=== PATIENT | male | born 1945 | race Caucasian/White ===

== ENCOUNTER 2023-03-09 06:02 | Outpatient (RCR) | payer MEDICARE, OTHER, SELFPAY | END 2023-03-09 23:59 | disposition home or self-care (01) | LOC: RPT 06:02 | PROVIDERS: ATTENDING PHYSICIAN Internal Medicine | DX: G20.C Parkinsonism, unspecified (principal) | CPT/HCPCS: 97112; 97163 ==

== ENCOUNTER 2023-04-16 09:05 | Outpatient (RCR) | payer MEDICARE, OTHER, SELFPAY | END 2023-04-16 10:08 | disposition home or self-care (01) | LOC: ROT 09:05 | PROVIDERS: ATTENDING PHYSICIAN Internal Medicine | DX: G20.C Parkinsonism, unspecified (principal) | CPT/HCPCS: 97110; 97112; 97116; 97166; 97530; 97535 ==

== ENCOUNTER 2023-04-27 17:30 | Outpatient (RCR) | payer SELFPAY | END 2023-04-27 23:59 | disposition home or self-care (01) | LOC: ROT 17:30 | PROVIDERS: ATTENDING PHYSICIAN Internal Medicine | DX: G20.A1 Parkinson's disease without dyskinesia, without mention of fluctuations (principal) ==

== ENCOUNTER → 2023-05-25 10:51 | Outpatient (REF) | payer MEDICARE, OTHER, SELFPAY | LOC: RAD 10:51 | PROVIDERS: ATTENDING PHYSICIAN Nurse Practitioner Family | DX: R05.1 Acute cough (principal); R09.89 Other specified symptoms and signs involving the circulatory and respiratory systems | CPT/HCPCS: 71046 ==

== ENCOUNTER 2023-06-22 20:50 | Observation (INO) | payer MEDICARE, OTHER, SELFPAY ==
[2023-06-22 18:06] VITALS: BP 180/84
[2023-06-22 18:10] LABS: Glucose - Point of Care 127 mg/dl (70-99)
[2023-06-22 18:38] LABS: % Basophils 0.3 % (0-2); % Eosinophils 1.4 % (0-6); % Immature Granulocytes 0.3 % (0-0.5); % Lymphocytes 21.6 % (20.5-51.1); % Monocytes 9.9 % (1.7-9.3); % Neutrophils 66.5 % (42.2-75.2); Absolute Eosinophils 0.1 10^3/uL (0-0.7); Absolute Lymphocytes 1.5 10^3/uL (1.2-3.4); Absolute Monocytes 0.7 10^3/uL (0.1-0.6); Absolute Neutrophils 4.7 10^3/uL (1.4-6.5); Hematocrit 44.9 % (39.0-52.0); Hemoglobin 14.8 g/dL (13.0-18.0); Mean Corpuscular Hgb 30.1 pg (27.0-31.0); Mean Corpuscular Volume 91.4 fL (80.0-94.0); Mean Platelet Volume 10.1 fL (7.4-10.4); Nucleated Red Blood Cells % 0 % (-); Platelet Count 217 10^3/uL (130-400); Red Blood Cell Count 4.91 10^6/uL (4.70-6.10); Red Cell Dist. Width 12.4 % (11.5-14.5); White Blood Cell Count 7.1 10^3/uL (4.8-10.8)
[2023-06-22 18:52] LABS: ALT (SGPT) 14 U/L (0-50); AST (SGOT) 21 U/L (17-59); Albumin 4.3 g/dl (3.5-5.0); Alkaline Phosphatase 75 U/L (38-126); Blood Urea Nitrogen 18 mg/dl (9-20); Carbon Dioxide 31 mmol/L (22-30); Chloride 95 mmol/L (98-107); Glucose 120 mg/dl (70-99); Potassium 4.4 mmol/L (3.5-5.1); Sodium 134 mmol/L (135-145); Total Bilirubin 0.5 mg/dl (0.2-1.3); Total Protein 6.7 g/dl (6.3-8.2); eGFR > 60.00
[2023-06-22 19:32] VITALS: BP 176/73
--- NOTE | 2023-06-22 19:55 | ED.CVA ---
History of Present Illness
General
Chief Complaint: CVA/TIA Symptoms
Source: patient
Exam Limitations: none
Time Seen by Provider: 06/22/23 19:28
Nursing documentation reviewed up to this point in time: agreed with
Onset of Stroke Symptoms
Onset of symptoms known: Yes
Date of onset of symptoms: 06/08/23
Travel History
Have you had any contact with someone who has COVID-19?: No
Do you have any symptoms of coronavirus? Fever > 100 degrees, chills, cough, shortness of breath, sore throat, loss of taste or smell, muscle aches, or headache?: No
History of Present Illness
History of Present Illness:
77-year-old male presents emergency department due to memory loss and difficulty remembering passwords and identifying items in their house for the past 2 weeks. No weakness. Diagnosed with Parkinson's in October at [facility].
Past History
Past History
ED Past Medical History: Other (Back pain, loud snoring, diverticulitis, cataracts) and Other (Parkinson's)
ED Past Surgical History: Orthopedic (Right total knee replacement, right shoulder replacement) and Other (3 hernia repairs)
Social History
Tobacco: Non-smoker
Alcohol: None
Drug: None
Personal:
Living: with family
Review of Systems
Review of Systems
Allergies reviewed?: Yes
All Other Systems: Not applicable
Constitutional: Reports no symptoms
EENT: Reports no symptoms
Respiratory: Reports no symptoms
Cardiac: Reports no symptoms
ABD/GI: Reports no symptoms
: Reports no symptoms
Musculoskeletal: Reports no symptoms
Skin: Reports no symptoms
Neurological: Reports other (Forgetfulness, difficulty naming objects)
Endocrine: Reports no symptoms
Hematologic/Lymphatic: Reports no symptoms
Psychiatric: Reports no symptoms
Phy Exam
Physical Exam
Physical Exam:
Physical Exam
General: no apparent distress, not acutely ill
Neck: supple. no meningeal signs. normal posterior pharynx
Heart: s1/s2 regular rate and rhythm, no murmur. equal radial
pulses.
HEENT: Pupils equal round reactive to light, EOMI
Lungs: no acute respiratory distress. clear bilaterally
Abdomen: normal bowel sounds. not tender. no CVAT
Neuro: alert and oriented. no focal neurological deficits cranial nerves II through XII intact
Skin: no rash
Psychiatric: well kept. interactive and cooperative
Extremities: no edema. no calf tenderness. negative homans. good distal pulses
Course
Orders/Labs/Results
Orders:
Orders
06/22/23 18:19
CT Head W/o Iv Contrast Urgent
Comment:
Reason For Exam: inappropriate actions when asked to do a task
06/22/23 18:22
EKG [Electrocardiogram (*1)] Urgent
Reason for Study: TIA/Stroke
EKG- Treatment ONCE
06/22/23 18:24
CBC/With Diff [Complete Blood Count/With Diff] Urgent
CMP [Comprehensive Metabolic Panel] Urgent
06/22/23 19:54
Dexamethasone [Decadron] 4 mg PO NOW STA
06/22/23 20:00
Dexamethasone [Decadron] 4 mg PO Q6H
Abnormal Lab Results
06/22/2324
18:08 18:24
Absolute Monos (auto) 0.7 H 10^3/uL
(0.1-0.6)
Monocytes % 9.9 H %
(1.7-9.3)
Sodium 134 L mmol/L
(135-145)
Chloride 95 L mmol/L
(98-107)
Carbon Dioxide 31 H mmol/L
(22-30)
Glucose 120 H mg/dl
(70-99)
POC Glucose 127 H mg/dl
(70-99)
06/22/23 18:24
06/22/23 18:24
Vital Signs
Initial and Last Documented VS:
Initial Vital Signs
Temp Pulse Resp BP Pulse Ox
98.1 F 72 18 180/84 97
06/22/23 18:06 06/22/23 18:06 06/22/23 18:06 06/22/23 18:06 06/22/23 18:06
Last Documented Vital Signs
Temp Pulse Resp BP Pulse Ox
98.1 F 72 18 180/84 97
06/22/23 18:06 06/22/23 18:06 06/22/23 18:06 06/22/23 18:06 06/22/23 18:06
MDM/Problems Addressed
Differential Diagnosis Includes:
CVA, intracranial hemorrhage, intracranial tumor
MDM/Problems Addressed:
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 Unclear if this is a primary tumor or metastasis. Discussed with Dr. Cárdenas, who recommends admission to hospitalist, Decadron 4 mg every 6 hours, and MRI brain, ct chest abdomen
pelvis. Hospitalist will order these.
Chronic conditions affecting care: Arrhythmia
Acute Exacerbation and/or Progression of Chronic Illness: Arrhythmia
*Radiology
Radiology exam reviewed: radiology read reviewed (ct head shows large mass in left occipital lobe)
*Pulse Oximetry
Patient hypoxic: no
*EKG
Interpreted by ED Provider?: Yes
EKG Intrepretation Date: 06/22/23
EKG Intrepretation Time: 18:27
Interpretation: abnormal
Comparison EKG: changes noted
Heart Rate: 71
Rate: normal
Rhythm: sinus and PAC's
[place]: normal axis
Interval: normal interval
QRS Pattern: normal QRS
Ischemia: no ischemia
*Dye Room Helper Interpretation
Rate: normal
Interpretation: normal
Heart Rate: 75
Rhythm: sinus
*Critical Care Note
Total Time (30-74mins, 75-104mins- exclusive of procedures): Not Applicable
Patient Management
Discussion with other providers: Hospitalist and Hand Therapist (neurosurgery Dr. Cárdenas)
Escalation/DeEscalation of care consider admission/obs:
admit indicated
ED Attending Note
-
Portions of this chart may have been created with voice recognition software.� Occasional wrong word or��sound alike� substitutions may have occurred due to the inherent limitations of voice recognition software.
Discharge Plan
Departure
Date of Disposition: 06/22/23
Time of Disposition: 20:13
Presentation/result/management discussed w/ accepting MD/DO: Hospitalist
Patient with high blood pressure during this ER visit?: Yes
Condition: Good
Prescriptions:
No Action
atorvastatin 10 MG tablet
10 mg PO QPM
finasteride 5 MG tablet
5 mg PO HS
metformin 1,000 MG tablet
1,000 mg PO BID
verapamil 120 MG tablet extended release
120 mg PO DAILY
metoprolol succinate 25 MG tablet extended release 24 hr
25 mg PO QPM
Magnesium W/ Calcium
1 tab PO DAILY
Patient Comments:
1000/500mg
No Flush Niacin
500 mg PO DAILY
famotidine 20 MG tablet
20 mg PO HS Qty: 30 0RF
carbidopa-levodopa 25-100 mg tablet
1 tab PO BID
Interventions
Interventions:
*Risk Screen - Suicide Last Done: 06/22/23 18:06
*General Assessment Last Done: 06/22/23 18:06
ED- Neurological Assessment Last Done: 06/22/23 18:15
Discharge Date and Time
Print Language: SWEDISH
[2023-06-22 20:00] VITALS: BP 164/75
[2023-06-22] MEDS: DECADRON PO (20:11)
[2023-06-22] MEDS: DECADRON 4 MG PO (20:18)
--- NOTE | 2023-06-22 20:22 | HPS.HSE ---
Family Physician
-
Family Physician: Esa Duncan
Chief Complaint
-
memory loss
History of Present Illness
77-year-old male past medical history of Parkinson's, SVT, diabetes, hyperlipidemia, BPH, osteoarthritis, presenting with rapid onset of confusion and memory loss over the past week.
Patient was diagnosed with Parkinson's disease in November and has since been on carbidopa levodopa to which she has been responding well. Patient's neurologist decided to stop the carbidopa levodopa to prevent resistance. He had been off of
carbidopa levodopa for 2 weeks. After developing confusion and memory loss patient attributed the symptoms to stopping carbidopa-levodopa and potential withdrawal so he started taking it again.
Patient denies any headache, blurry vision, numbness or tingling, focal weakness or gait dysfunction. Denies nausea vomiting or cough or shortness of breath or chest pain or diarrhea or constipation. He has lost some weight recently but it is
intentional.
His mother had leukemia and breast cancer. Father had heart disease.
He is a former smoker. Denies alcohol.
Medical History
Past Medical History
Past Medical History: Reports Other (Parkinson's, SVT, diabetes, hyperlipidemia, BPH, osteoarthritis,)
Past Surgical History: Reports None
Social History
Tobacco: Former Smoker
Alcohol: None
Drug: None
Family History
Family History: Not pertinent
Allergies / Home Medications
Allergies reflects when Allergies were last updated in [employer].
Home Medications with original date entered in [facility]
Allergy/Medication List:
Allergies
Allergy/AdvReac Type Severity Reaction Status Date / Time
ciprofloxacin [From Cipro] Allergy PATIENT Verified 06/22/23 18:19
DENIES
ciprofloxacin HCl Allergy PATIENT Verified 06/22/23 18:19
[From Cipro] DENIES
oxycodone Allergy Rash Verified 06/22/23 18:19
Sulfa (Sulfonamide Allergy Hives Verified 06/22/23 18:19
Antibiotics)
respiratory (environmental) Allergy runny Uncoded 06/22/23 18:19
nose,itchy
eyes
Home Medications
atorvastatin 10 mg tablet 10 mg PO QPM 05/25/11
finasteride 5 mg tablet 5 mg PO HS 06/14/14
metformin 1,000 mg tablet 1,000 mg PO BID 07/03/14
Magnesium W/ Calcium 1 tab PO DAILY 11/05/15
No Flush Niacin 500 mg PO DAILY 11/05/15
metoprolol succinate 25 mg tablet,extended release 24 hr 25 mg PO QPM 11/05/15
verapamil 120 mg tablet,extended release 120 mg PO DAILY 11/05/15
famotidine 20 mg tablet 20 mg PO HS #30 tabs 11/28/15
carbidopa 25 mg-levodopa 100 mg tablet 1 tab PO BID 06/22/23
Review of Systems
-
History Source: Patient
A 12 point ROS was completed and negative except as noted: Yes
Constitutional: Reports No Symptoms
EENT: Reports No Symptoms
Respiratory: Reports No Symptoms
Cardiac: Reports No Symptoms
Abdomen/GI: Reports No Symptoms
: Reports No Symptoms
Musculoskeletal: Reports No Symptoms
Skin: Reports No Symptoms
Neurological: Reports No Symptoms
Endocrine: Reports No Symptoms
Hematologic/Lymphatic: Reports No Symptoms
Psych: Reports No Symptoms
Physical Exam
Vital Signs
Vital Signs
Temp Pulse Resp BP Pulse Ox
98.1 F 72 18 180/84 97
06/22/23 18:06 06/22/23 18:06 06/22/23 18:06 06/22/23 18:06 06/22/23 18:06
Physical Exam
General: Well Developed, Well Nourished and No Apparent Distress
HEENT: NormoCephalic, Moist mucous membranes and Atraumatic
Respiratory: Clear
Cardiac: S1/S2 and Regular Rhythm; No Murmur or Rub
GI: Soft, Non Tender, Non Distended and Normal Bowel Sounds; No Organomegaly
Rectal: Deferred by Provider
Musculoskeletal: No Clubbing, No Cyanosis and No Edema
Skin: No Rash
Neuro: Nonfocal/grossly intact
Laboratory Results
-
06/22/23 18:24
06/22/23 18:24
Laboratory Results
Total Bilirubin 0.5 mg/dl (0.2-1.3) 06/22/23 18:24
AST 21 U/L (17-59) 06/22/23 18:24
ALT 14 U/L (0-50) 06/22/23 18:24
Alkaline Phosphatase 75 U/L (38-126) 06/22/23 18:24
Data Reviewed
-
Lab Data: Labs Reviewed by me
Old Records: Reviewed
Impression/Plan
-
IMPRESSION:
PLAN:
# Confusion/memory loss secondary to left occipital lobe mass possibly primary brain neoplasm versus metastatic disease
-CT head shows large mass in the left supra lobe extending superiorly into the left parietal lobe with significant rim of adjacent white matter edema and mild mass effect upon the posterior aspect of the left lateral ventricle
-Check MRI brain with and without contrast
-Check CT chest abdomen pelvis with contrast
-Decadron 4 mg every 6 hours
-Neurosurgery consulted
# Hypertensive urgency
-As needed hydralazine to keep BP under 160
-no history of HTN
Parkinson's disease
-Continue carbidopa-levodopa
History of SVT
-Continue metoprolol, verapamil
Type 2 diabetes
-Continue metformin
Hyperlipidemia
-Continue statin
BPH
-Continue finasteride
Osteoarthritis
DNR/DNI
DVT prophylaxis�SCDs
Regular diet
[2023-06-22] MEDS: PEPCID 20 MG PO (23:04)
[2023-06-22] MEDS: PROSCAR 5 MG PO (23:04)
[2023-06-22 23:12] VITALS: BP 159/85
[2023-06-23] MEDS: DECADRON 4 MG PO ×4 (02:17→20:12)
[2023-06-23 02:18] VITALS: BP 139/64
[2023-06-23 06:30] LABS: % Basophils 0.2 % (0-2); % Immature Granulocytes 0.5 % (0-0.5); % Lymphocytes 10.1 % (20.5-51.1); % Monocytes 3.8 % (1.7-9.3); % Neutrophils 85.4 % (42.2-75.2); Absolute Lymphocytes 0.6 10^3/uL (1.2-3.4); Absolute Monocytes 0.2 10^3/uL (0.1-0.6); Absolute Neutrophils 5.4 10^3/uL (1.4-6.5); Hematocrit 42.7 % (39.0-52.0); Hemoglobin 14.8 g/dL (13.0-18.0); Mean Corp Hgb Conc. 34.7 g/dL (33.0-37.0); Mean Corpuscular Hgb 30.5 pg (27.0-31.0); Mean Platelet Volume 9.9 fL (7.4-10.4); Nucleated Red Blood Cells % 0 % (-); Platelet Count 206 10^3/uL (130-400); Red Blood Cell Count 4.85 10^6/uL (4.70-6.10); Red Cell Dist. Width 12.2 % (11.5-14.5); White Blood Cell Count 6.3 10^3/uL (4.8-10.8)
[2023-06-23 06:57] LABS: ALT (SGPT) 17 U/L (0-50); AST (SGOT) 18 U/L (17-59); Alkaline Phosphatase 75 U/L (38-126); Blood Urea Nitrogen 19 mg/dl (9-20); Calcium 9.9 mg/dl (8.4-10.2); Carbon Dioxide 26 mmol/L (22-30); Chloride 97 mmol/L (98-107); Estimated Creatinine Clearance 79 ml/min; Glucose 193 mg/dl (70-99); Potassium 4.6 mmol/L (3.5-5.1); Sodium 133 mmol/L (135-145); Total Bilirubin 0.6 mg/dl (0.2-1.3); Total Protein 6.4 g/dl (6.3-8.2); eGFR > 60.00
[2023-06-23 07:22] VITALS: BMI 30.7
[2023-06-23] MEDS: OMNIPAQUE 50 ML PO (07:22)
[2023-06-23 07:24] VITALS: BP 164/76
[2023-06-23] MEDS: GLUCOPHAGE 1000 MG PO ×2 (07:55→20:11)
[2023-06-23] MEDS: CALAN EXTENDED RELEASE 120 MG PO (07:57)
[2023-06-23] MEDS: SINEMET 25-100 1 TABLET PO ×2 (07:57→20:11)
--- NOTE | 2023-06-23 08:05 | W.PN.HOSP.TC ---
Addendum entered and electronically signed by Rikki Thomson MD 06/23/23 15:43:
Transfer paperwork completed.
Original Note:
Today's Communication/Plan
-
Steroids. AED. Neurosurgery eval
Assessment / Plan
Assessment / Plan
Physical exam:
General: Well Developed, Well Nourished and No Apparent Distress
HEENT: Normocephalic, Atraumatic and Moist Mucous Membranes
Respiratory: Clear to Auscultation; Negative Wheezes, Rales or Rhonchi
Cardiac: Regular Rhythm and S1/S2
GI: Soft, Nontender and Nondistended
Musculoskeletal: No Clubbing, No Cyanosis and No Edema
Neuro: Awake, Alert and Oriented, strength 5 out of 5, increased tonicity, mild cognitive deficit, dyscalculia, finger agnosia.
Psych: Calm
A/P:
# Brain mass likely neoplastic
-MRI of the brain suggest likely glioblastoma versus lymphoma (most likely the former)
-CT chest abdomen pelvis with contrast with no metastatic lesions
-Cont Decadron 4 mg every 6 hours
-Neurosurgery consulted and appreciated input. Neurosurgery will initiate possible transfer to [facility] for surgical intervention. I reached out to hospitalist at [facility], Dr Gauri Powers today on 06/22.
-Started on Keppra 500 mg twice daily
-Discussed with at bedside today
# Hypertensive urgency
-As needed hydralazine to keep BP under 160
-no history of HTN
Parkinson's disease
-Continue carbidopa-levodopa
History of SVT
-Continue metoprolol, verapamil
Type 2 diabetes
-Continue metformin
Hyperlipidemia
-Continue statin
BPH
-Continue finasteride
Osteoarthritis
DNR/DNI
DVT prophylaxis�SCDs
Regular diet
Total time spent on today's encounter was 52 minutes which included time spent in counseling the patient/family regarding diagnosis and treatment plan as listed above, goals of care, and symptom management. Case was discussed with nursing staff,
specialists, and care coordinators/case management. All labs and imaging personally reviewed by me. Remainder the time spent in detailed review of previous records, lab data, imaging, and other medical provider documentation.
Anticipated Discharge: 24 - 48 hours
Subjective/Interval History
-
Date of Service: June 23, 2023
Patient denies any headaches. Afebrile. No chest pain or shortness of breath
Objective Data
-
Labs:
Laboratory Results
06/23/23
06:20
WBC 6.3
Hgb 14.8
Hct 42.7
Plt Count 206
Sodium 133 L
Potassium 4.6
Chloride 97 L
Carbon Dioxide 26
BUN 19
Creatinine 0.8
Glucose 193 H
Calcium 9.9
Total Bilirubin 0.6
AST 18
ALT 17
Alkaline Phosphatase 75
Vital Signs:
Vital Signs
Temp Pulse Resp BP Pulse Ox
98.2 F 65 16 164/76 97
06/23/23 07:24 06/23/23 07:24 06/23/23 07:24 06/23/23 07:24 06/23/23 07:24
Review of Systems
-
All other systems: Reviewed and negative
[2023-06-23 14:15] VITALS: BP 140/72; BMI 30.1
--- NOTE | 2023-06-23 14:24 | CON.NS ---
Consultation
-
Date/Time Consultation Performed: 06/23/2023, 14:30
Performing Provider: Tammie
Chief Complaint
History of Present Illness
This is a neurosurgical consultation on a 69-year-old gentleman, with past medical history of Parkinson's disease, SVT, diabetes, who presented with progressive confusion and memory loss over the past week. Patient was diagnosed with Parkinson's
disease in November 2022, had been on medication for this. Ultimately, this was discontinued to prevent resistance. Patient had a noncontrast CT scan of the head, which demonstrated a left right occipital mass.
Patient is left-handed. He denies any headaches. He reports that he has been having significant difficulty with remembering where simple things are on his kitchen, and in his home. He is also been having significant difficulties with numbers.
also reports he has been having difficulty with word finding. He denies any vision difficulties, but did have 1 stumble 2 weeks ago which she reports is mechanical. He has stopped driving, for his 's request. He is retired teacher.
Review of Systems
-
A 10 point review of systems was performed which includes the constitutional, ENT, cardiovascular, respiratory, GI, , neurologic, hematologic, antinausea, psychiatric, musculoskeletal, and was negative, except for as stated in HPI.
Medication and Allergies
Home Medications
Home Medications
�Medication �Instructions �Recorded
atorvastatin 10 mg tablet 10 mg PO QPM 05/25/11
finasteride 5 mg tablet 5 mg PO HS 06/14/14
metformin 1,000 mg tablet 1,000 mg PO BID 07/03/14
Magnesium W/ Calcium 1 tab PO DAILY 11/05/15
No Flush Niacin 500 mg PO DAILY 11/05/15
metoprolol succinate 25 mg 25 mg PO QPM 11/05/15
tablet,extended release 24 hr
verapamil 120 mg tablet,extended 120 mg PO DAILY 11/05/15
release
famotidine 20 mg tablet 20 mg PO HS #30 tabs 11/28/15
carbidopa 25 mg-levodopa 100 mg 1 tab PO BID 06/22/23
tablet
Allergies
Allergies
Allergy/AdvReac Type Severity Reaction Status Date / Time
ciprofloxacin [From Cipro] Allergy PATIENT Verified 06/22/23 18:19
DENIES
ciprofloxacin HCl Allergy PATIENT Verified 06/22/23 18:19
[From Cipro] DENIES
oxycodone Allergy Rash Verified 06/22/23 18:19
Sulfa (Sulfonamide Allergy Hives Verified 06/22/23 18:19
Antibiotics)
respiratory (environmental) Allergy runny Uncoded 06/22/23 18:19
nose,itchy
eyes
Physical Exam
-
Exam:
Awake, alert, conversant.
Pupils are equal and reactive.
Extraocular movements are full.
Right-sided hemifield cut.
Face is symmetric.
Motor: 5/5 strength bilaterally in upper and lower extremities.
Positive finger agnosia, positive right/left confusion, positive dyscalculia.
No sensory changes.
Head is normocephalic/atraumatic.
Neck is supple.
Breathing nonlabored.
Regular rhythm.
Abdomen is soft.
Extremities are warm.
PROCEDURE: MR Brain W/o  With Contrast
CLINICAL INDICATION: brain mass
TECHNIQUE: 1.5 Geni. Unenhanced and enhanced MRI imaging of the brain was performed. Precontrast sagittal and axial T1, as well as axial fast spin echo T2, FLAIR, and diffusion images were obtained. Postcontrast T1 axial and coronal images were
also obtained.
COMPARISON: None.
FINDINGS:
Large rim-enhancing mass centered within the left occipital lobe measuring up to 3.6 x 3.2 x 4.3 cm with irregular rim of enhancement and heterogeneous internal enhancement and necrosis. There is moderate surrounding vasogenic edema with mild mass
effect on the adjacent parenchyma and occipital horn of the left lateral ventricle. No evidence for lesion extension into the ventricles or ventriculitis. Probable small amount of hemosiderin deposition along the periphery of the mass. There is some
heterogeneous restricted diffusion within the lesion. No donny associated brain herniation. No definite additional abnormal enhancing brain lesions identified.
There is no midline shift or extra axial collection.
There is no additional abnormal signal intensity on diffusion-weighted images to suggest acute infarct.
Axial FLAIR sequence otherwise demonstrates mild hyperintensity within the periventricular and deep subcortical white matter, likely related to underlying chronic small vessel ischemic changes.
The vascular structures at the skull base are unremarkable, as far as visualized. Mild mucosal thickening of the bilateral ethmoid sinuses.
IMPRESSION:
Solitary rim-enhancing left occipital lobe mass measuring up to 4.3 cm most in keeping with primary brain neoplasm such as glioblastoma multiforme or lymphoma. Less likely differential would include cerebral abscess or metastasis.
I reviewed the imaging, and agree with the report above. 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
Problems
-
Problem Status Onset Code
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
Assessment / Plan
-
This is a 77-year-old gentleman that presents with memory difficulties, cognitive dysfunction. 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
Lengthy discussion was held with the patient and patient's . CT of the chest/abdomen/pelvis is negative. Patient will require excisional biopsy via craniotomy. This requires stereotactic navigation, which unfortunately is unavailable at
[facility]. Therefore, patient will require transfer to [facility] for surgical intervention. Patient and are open to this and are agreeable to transfer.
-- In interim, start dexamethasone 4 mg every 6 hours.
-- Keppra 500 mg twice daily.
Will discuss with bed management to coordinate transfer.
--- NOTE | 2023-06-23 14:55 | PTCARENOTE ---
Received pt from ER via stretcher, accompanied by ER staff. Pt awake and alert, oriented to self/place/birthdate/year; states month is 'January'; occ has difficulty word- finding. Speech clear, soft. CALLAHAN well, ambulatory to bed with assist x1; sl
unsteady at times; denies weakness/dizziness. VSS. On room air- pulse ox 96%. Abd large, soft, to start reg diet. Voided in BR upon arrival to room. Oriented to 4East, currently resting in bed. Will continue to monitor.
[2023-06-23 15:38] VITALS: BP 124/56
[2023-06-23] MEDS: LIPITOR 10 MG PO (17:48)
[2023-06-23] MEDS: TOPROL XL 25 MG PO (17:49)
--- NOTE | 2023-06-23 18:50 | W.DCSUMMARY ---
Discharge Summary
Discharge Data
Date of Admission: 06/22/23
Date of Discharge: 06/23/23
-
Pending Results: No
Hospital Course
Patient is 77 years old male with past medical history of Parkinson's disease, SVT, diabetes mellitus, presented to the hospital with increased confusion and memory loss over a week. Patient had a noncontrast CT of the head that showed left right
occipital mass. Further workup initiated and neurosurgery consulted. Patient had a brain MRI that confirmed a left occipital lobe mass measuring up to 4.3 cm likely brain neoplasm such as glioblastoma multiforme or lymphoma. He also had CT scan of
the chest abdomen and pelvis without much evidence of metastatic lesions. Patient was seen by neurosurgery who recommended transfer to [facility] for brain biopsy. He was placed on IV hydralazine as needed for some elevated blood pressure
readings. Labs unremarkable except for mild hyponatremia and some hyperglycemia. Otherwise, patient is hemodynamically stable and relatively asymptomatic but overall carries a poor prognosis. He is being transferred as soon as a bed is available.
I discussed with Dr. Gauri Powers hospitalist at [facility] who has accepted patient in transfer. Patient has been initiated on steroids and antiseizure medications.
Discharge duration: 32 minutes
Discharge Plan
-
Patient Disposition: Acute Care Hospital
Discharge Orders:
Discharge Patient (As Directed); Ordered 06/23/23
Ordered By: Rikki Thomson
Discharge Date and Time
Discharge Date/Time: 06/23/23 21:33
Print Language: SAMI
[2023-06-23 20:11] LABS: Glucose - Point of Care 241 mg/dl (70-99)
[2023-06-23] MEDS: PROSCAR 5 MG PO (20:14)
[2023-06-23] MEDS: PEPCID 20 MG PO (20:14)
[2023-06-23] MEDS: KEPPRA 500 MG IV (20:15)
[2023-06-23 20:31] VITALS: BP 138/58
--- NOTE | 2023-06-23 21:30 | PTCARENOTE ---
Report called to Christine at [facility]. Patient transferred via ambulance with all belongings.
== END 2023-06-23 21:33 | disposition short-term general hospital (02) ==
LOC: 4 EAST ACU 20:50
PROVIDERS: Emergency Medicine; ADMITTING PHYSICIAN Hospitalist; ATTENDING PHYSICIAN Hospitalist; EMERGENCY PHYSICIAN Emergency Medicine; FAMILY PHYSICIAN Internal Medicine; OTHER PHYSICIAN Neurological Surgery
DX: R41.3 Other amnesia (principal); R22.0 Localized swelling, mass and lump, head; G93.9 Disorder of brain, unspecified; G20.A1 Parkinson's disease without dyskinesia, without mention of fluctuations; E11.65 Type 2 diabetes mellitus with hyperglycemia; E78.5 Hyperlipidemia, unspecified; J30.89 Other allergic rhinitis; N40.0 Benign prostatic hyperplasia without lower urinary tract symptoms; I16.0 Hypertensive urgency; E87.1 Hypo-osmolality and hyponatremia; N28.1 Cyst of kidney, acquired; I25.10 Atherosclerotic heart disease of native coronary artery without angina pectoris; M19.90 Unspecified osteoarthritis, unspecified site; Z82.49 Family history of ischemic heart disease and other diseases of the circulatory system; Z80.3 Family history of malignant neoplasm of breast; Z87.891 Personal history of nicotine dependence; Z88.1 Allergy status to other antibiotic agents; Z79.84 Long term (current) use of oral hypoglycemic drugs; Z86.79 Personal history of other diseases of the circulatory system; Z96.611 Presence of right artificial shoulder joint; Z88.5 Allergy status to narcotic agent; Z88.2 Allergy status to sulfonamides; Z66 Do not resuscitate
CPT/HCPCS: 70450; 70553; 71260; 74177; 80053; 82962; 85025; 93005; 99285; A9575; G0378; Q9967

== ENCOUNTER → 2023-08-06 08:31 | Outpatient (REF) | payer MEDICARE, OTHER, SELFPAY ==
[2023-08-06 09:18] LABS: % Basophils 0.4 % (0-2); % Eosinophils 1.3 % (0-6); % Immature Granulocytes 0.9 % (0-0.5); % Lymphocytes 13.5 % (20.5-51.1); % Monocytes 9.3 % (1.7-9.3); % Neutrophils 74.6 % (42.2-75.2); Absolute Eosinophils 0.1 10^3/uL (0-0.7); Absolute Immature Granulocytes 0.1 10^3/uL (0-0.05); Absolute Lymphocytes 1.1 10^3/uL (1.2-3.4); Absolute Monocytes 0.7 10^3/uL (0.1-0.6); Absolute Neutrophils 5.8 10^3/uL (1.4-6.5); Hematocrit 41.2 % (39.0-52.0); Hemoglobin 13.6 g/dL (13.0-18.0); Mean Corpuscular Hgb 29.6 pg (27.0-31.0); Mean Corpuscular Volume 89.8 fL (80.0-94.0); Mean Platelet Volume 10.6 fL (7.4-10.4); Nucleated Red Blood Cells % 0 % (-); Platelet Count 186 10^3/uL (130-400); Red Blood Cell Count 4.59 10^6/uL (4.70-6.10); Red Cell Dist. Width 13.2 % (11.5-14.5); White Blood Cell Count 7.8 10^3/uL (4.8-10.8)
[2023-08-06 09:31] LABS: ALT (SGPT) 15 U/L (0-50); AST (SGOT) 17 U/L (17-59); Albumin 4.1 g/dl (3.5-5.0); Alkaline Phosphatase 104 U/L (38-126); Blood Urea Nitrogen 24 mg/dl (9-20); Carbon Dioxide 30 mmol/L (22-30); Chloride 98 mmol/L (98-107); Glucose 148 mg/dl (70-99); Iron 88 ug/dl (49-181); Magnesium 1.9 mg/dl (1.6-2.3); Potassium 4.4 mmol/L (3.5-5.1); Sodium 137 mmol/L (135-145); Total Bilirubin 0.7 mg/dl (0.2-1.3); Total Protein 6.6 g/dl (6.3-8.2); eGFR > 60.00
[2023-08-06 09:39] LABS: Percent Saturation 31 % (20-50); Total Iron Binding Capacity 280 ug/dl (261-462)
[2023-08-06 09:50] LABS: Microalbumin, Random Urine <0.6 mg/dl (0.6-1.7)
[2023-08-06 13:54] LABS: Glycohemoglobin (HgbA1c) 7.2 % (4.0-5.6)
== END ==
LOC: REG 08:31
PROVIDERS: ATTENDING PHYSICIAN Internal Medicine; FAMILY PHYSICIAN Internal Medicine Hematology & Oncology
DX: C71.4 Malignant neoplasm of occipital lobe (principal); E11.9 Type 2 diabetes mellitus without complications; I48.92 Unspecified atrial flutter
CPT/HCPCS: 36415; 80053; 81256; 82043; 82570; 82728; 83036; 83540; 83550; 83735; 85025

== ENCOUNTER → 2023-08-13 12:38 | Outpatient (REF) | payer MEDICARE, OTHER, SELFPAY ==
[2023-08-13 13:48] LABS: % Basophils 0.5 % (0-2); % Eosinophils 3.1 % (0-6); % Immature Granulocytes 0.5 % (0-0.5); % Lymphocytes 12.8 % (20.5-51.1); % Monocytes 8.6 % (1.7-9.3); % Neutrophils 74.5 % (42.2-75.2); Absolute Eosinophils 0.2 10^3/uL (0-0.7); Absolute Lymphocytes 0.8 10^3/uL (1.2-3.4); Absolute Monocytes 0.6 10^3/uL (0.1-0.6); Absolute Neutrophils 4.8 10^3/uL (1.4-6.5); Hematocrit 41.6 % (39.0-52.0); Hemoglobin 13.7 g/dL (13.0-18.0); Mean Corp Hgb Conc. 32.9 g/dL (33.0-37.0); Mean Corpuscular Hgb 30.2 pg (27.0-31.0); Mean Corpuscular Volume 91.8 fL (80.0-94.0); Mean Platelet Volume 10.9 fL (7.4-10.4); Nucleated Red Blood Cells % 0 % (-); Platelet Count 190 10^3/uL (130-400); Red Blood Cell Count 4.53 10^6/uL (4.70-6.10); Red Cell Dist. Width 13.6 % (11.5-14.5); White Blood Cell Count 6.5 10^3/uL (4.8-10.8)
[2023-08-13 14:11] LABS: ALT (SGPT) 10 U/L (0-50); AST (SGOT) 17 U/L (17-59); Albumin 4.1 g/dl (3.5-5.0); Alkaline Phosphatase 94 U/L (38-126); Blood Urea Nitrogen 24 mg/dl (9-20); Calcium 9.8 mg/dl (8.4-10.2); Carbon Dioxide 30 mmol/L (22-30); Chloride 98 mmol/L (98-107); Glucose 169 mg/dl (70-99); Potassium 4.4 mmol/L (3.5-5.1); Sodium 137 mmol/L (135-145); Total Bilirubin 0.6 mg/dl (0.2-1.3); Total Protein 6.5 g/dl (6.3-8.2); eGFR > 60.00
== END ==
LOC: REG 12:38
PROVIDERS: ATTENDING PHYSICIAN Internal Medicine Hematology & Oncology; FAMILY PHYSICIAN Internal Medicine
DX: C71.4 Malignant neoplasm of occipital lobe (principal)
CPT/HCPCS: 36415; 80053; 83735; 85025

== ENCOUNTER → 2023-08-20 12:05 | Outpatient (REF) | payer MEDICARE, OTHER, SELFPAY ==
[2023-08-20 13:21] LABS: % Basophils 0.3 % (0-2); % Eosinophils 5.8 % (0-6); % Immature Granulocytes 0.3 % (0-0.5); % Lymphocytes 11.8 % (20.5-51.1); % Monocytes 8.3 % (1.7-9.3); % Neutrophils 73.5 % (42.2-75.2); Absolute Eosinophils 0.3 10^3/uL (0-0.7); Absolute Lymphocytes 0.7 10^3/uL (1.2-3.4); Absolute Monocytes 0.5 10^3/uL (0.1-0.6); Absolute Neutrophils 4.3 10^3/uL (1.4-6.5); Hematocrit 39.1 % (39.0-52.0); Hemoglobin 13.3 g/dL (13.0-18.0); Mean Corpuscular Hgb 30.4 pg (27.0-31.0); Mean Corpuscular Volume 89.3 fL (80.0-94.0); Mean Platelet Volume 10.4 fL (7.4-10.4); Nucleated Red Blood Cells % 0 % (-); Platelet Count 200 10^3/uL (130-400); Red Blood Cell Count 4.38 10^6/uL (4.70-6.10); Red Cell Dist. Width 13.9 % (11.5-14.5); White Blood Cell Count 5.9 10^3/uL (4.8-10.8)
[2023-08-20 13:47] LABS: ALT (SGPT) 15 U/L (0-50); AST (SGOT) 22 U/L (17-59); Alkaline Phosphatase 85 U/L (38-126); Blood Urea Nitrogen 20 mg/dl (9-20); Carbon Dioxide 30 mmol/L (22-30); Chloride 97 mmol/L (98-107); Glucose 148 mg/dl (70-99); Potassium 4.4 mmol/L (3.5-5.1); Sodium 135 mmol/L (135-145); Total Bilirubin 0.8 mg/dl (0.2-1.3); Total Protein 6.6 g/dl (6.3-8.2); eGFR > 60.00
== END ==
LOC: REG 12:05
PROVIDERS: ATTENDING PHYSICIAN Internal Medicine Hematology & Oncology; FAMILY PHYSICIAN Internal Medicine
DX: C71.4 Malignant neoplasm of occipital lobe (principal)
CPT/HCPCS: 36415; 80053; 83735; 85025

== ENCOUNTER → 2023-08-27 11:41 | Outpatient (REF) | payer MEDICARE, OTHER, SELFPAY ==
[2023-08-27 12:28] LABS: % Basophils 0.3 % (0-2); % Eosinophils 6.8 % (0-6); % Immature Granulocytes 0.3 % (0-0.5); % Lymphocytes 12.7 % (20.5-51.1); % Monocytes 9.6 % (1.7-9.3); % Neutrophils 70.3 % (42.2-75.2); Absolute Eosinophils 0.4 10^3/uL (0-0.7); Absolute Lymphocytes 0.8 10^3/uL (1.2-3.4); Absolute Monocytes 0.6 10^3/uL (0.1-0.6); Absolute Neutrophils 4.2 10^3/uL (1.4-6.5); Hematocrit 40.8 % (39.0-52.0); Hemoglobin 13.2 g/dL (13.0-18.0); Mean Corp Hgb Conc. 32.4 g/dL (33.0-37.0); Mean Corpuscular Volume 92.7 fL (80.0-94.0); Mean Platelet Volume 10.1 fL (7.4-10.4); Nucleated Red Blood Cells % 0 % (-); Platelet Count 203 10^3/uL (130-400); Red Cell Dist. Width 14.5 % (11.5-14.5); White Blood Cell Count 5.9 10^3/uL (4.8-10.8)
[2023-08-27 13:34] LABS: ALT (SGPT) 15 U/L (0-50); AST (SGOT) 19 U/L (17-59); Albumin 4.2 g/dl (3.5-5.0); Alkaline Phosphatase 87 U/L (38-126); Blood Urea Nitrogen 20 mg/dl (9-20); Calcium 9.8 mg/dl (8.4-10.2); Carbon Dioxide 30 mmol/L (22-30); Chloride 98 mmol/L (98-107); Glucose 120 mg/dl (70-99); Magnesium 1.9 mg/dl (1.6-2.3); Potassium 4.3 mmol/L (3.5-5.1); Sodium 137 mmol/L (135-145); Total Bilirubin 0.8 mg/dl (0.2-1.3); Total Protein 6.4 g/dl (6.3-8.2); eGFR > 60.00
== END ==
LOC: REG 11:41
PROVIDERS: ATTENDING PHYSICIAN Internal Medicine Hematology & Oncology; FAMILY PHYSICIAN Internal Medicine
DX: C71.4 Malignant neoplasm of occipital lobe (principal)
CPT/HCPCS: 36415; 80053; 83735; 85025

== ENCOUNTER → 2023-09-03 12:06 | Outpatient (REF) | payer MEDICARE, OTHER, SELFPAY ==
[2023-09-03 13:12] LABS: % Basophils 0.2 % (0-2); % Eosinophils 6.7 % (0-6); % Immature Granulocytes 0.2 % (0-0.5); % Lymphocytes 10.3 % (20.5-51.1); % Monocytes 10.2 % (1.7-9.3); % Neutrophils 72.4 % (42.2-75.2); Absolute Eosinophils 0.4 10^3/uL (0-0.7); Absolute Lymphocytes 0.7 10^3/uL (1.2-3.4); Absolute Monocytes 0.7 10^3/uL (0.1-0.6); Absolute Neutrophils 4.6 10^3/uL (1.4-6.5); Hematocrit 39.2 % (39.0-52.0); Hemoglobin 13.4 g/dL (13.0-18.0); Mean Corp Hgb Conc. 34.2 g/dL (33.0-37.0); Mean Corpuscular Volume 90.7 fL (80.0-94.0); Mean Platelet Volume 10.2 fL (7.4-10.4); Nucleated Red Blood Cells % 0 % (-); Platelet Count 146 10^3/uL (130-400); Red Blood Cell Count 4.32 10^6/uL (4.70-6.10); Red Cell Dist. Width 14.6 % (11.5-14.5); White Blood Cell Count 6.4 10^3/uL (4.8-10.8)
[2023-09-03 13:55] LABS: ALT (SGPT) < 10 U/L (0-50); AST (SGOT) 16 U/L (17-59); Albumin 4.2 g/dl (3.5-5.0); Alkaline Phosphatase 93 U/L (38-126); Blood Urea Nitrogen 23 mg/dl (9-20); Carbon Dioxide 28 mmol/L (22-30); Chloride 99 mmol/L (98-107); Glucose 176 mg/dl (70-99); Potassium 4.2 mmol/L (3.5-5.1); Sodium 136 mmol/L (135-145); Total Bilirubin 1.2 mg/dl (0.2-1.3); Total Protein 6.5 g/dl (6.3-8.2); eGFR > 60.00
== END ==
LOC: REG 12:06
PROVIDERS: ATTENDING PHYSICIAN Internal Medicine Hematology & Oncology; FAMILY PHYSICIAN Internal Medicine
DX: C71.4 Malignant neoplasm of occipital lobe (principal)
CPT/HCPCS: 36415; 80053; 83735; 85025

== ENCOUNTER → 2023-09-10 11:41 | Outpatient (REF) | payer MEDICARE, OTHER, SELFPAY ==
[2023-09-10 12:27] LABS: % Basophils 0.2 % (0-2); % Eosinophils 6.7 % (0-6); % Immature Granulocytes 0.4 % (0-0.5); % Lymphocytes 10.2 % (20.5-51.1); % Monocytes 9.4 % (1.7-9.3); % Neutrophils 73.1 % (42.2-75.2); Absolute Eosinophils 0.3 10^3/uL (0-0.7); Absolute Lymphocytes 0.5 10^3/uL (1.2-3.4); Absolute Monocytes 0.5 10^3/uL (0.1-0.6); Absolute Neutrophils 3.7 10^3/uL (1.4-6.5); Hematocrit 37.5 % (39.0-52.0); Hemoglobin 12.4 g/dL (13.0-18.0); Mean Corp Hgb Conc. 33.1 g/dL (33.0-37.0); Mean Corpuscular Hgb 30.8 pg (27.0-31.0); Mean Corpuscular Volume 93.1 fL (80.0-94.0); Nucleated Red Blood Cells % 0 % (-); Red Blood Cell Count 4.03 10^6/uL (4.70-6.10); Red Cell Dist. Width 14.1 % (11.5-14.5); White Blood Cell Count 5.1 10^3/uL (4.8-10.8)
[2023-09-10 13:09] LABS: Mean Platelet Volume 10.1 fL (7.4-10.4)
[2023-09-10 13:10] LABS: Platelet Count 95 10^3/uL (130-400)
[2023-09-10 13:14] LABS: ALT (SGPT) < 10 U/L (0-50); AST (SGOT) 17 U/L (17-59); Albumin 4.2 g/dl (3.5-5.0); Alkaline Phosphatase 94 U/L (38-126); Blood Urea Nitrogen 23 mg/dl (9-20); Calcium 9.9 mg/dl (8.4-10.2); Carbon Dioxide 26 mmol/L (22-30); Chloride 100 mmol/L (98-107); Glucose 201 mg/dl (70-99); Magnesium 1.9 mg/dl (1.6-2.3); Potassium 4.2 mmol/L (3.5-5.1); Sodium 136 mmol/L (135-145); Total Bilirubin 1.1 mg/dl (0.2-1.3); Total Protein 6.4 g/dl (6.3-8.2); eGFR > 60.00
== END ==
LOC: REG 11:41
PROVIDERS: ATTENDING PHYSICIAN Internal Medicine Hematology & Oncology; FAMILY PHYSICIAN Internal Medicine; REFERRING PHYSICIAN Radiology Radiation Oncology
DX: C71.4 Malignant neoplasm of occipital lobe (principal)
CPT/HCPCS: 36415; 80053; 83735; 85025

== ENCOUNTER → 2023-09-16 14:05 | Outpatient (REF) | payer MEDICARE, OTHER, SELFPAY ==
[2023-09-16 15:01] LABS: % Basophils 0.4 % (0-2); % Eosinophils 7.1 % (0-6); % Immature Granulocytes 0.2 % (0-0.5); % Lymphocytes 9.4 % (20.5-51.1); % Monocytes 8.5 % (1.7-9.3); % Neutrophils 74.4 % (42.2-75.2); Absolute Eosinophils 0.4 10^3/uL (0-0.7); Absolute Lymphocytes 0.5 10^3/uL (1.2-3.4); Absolute Monocytes 0.4 10^3/uL (0.1-0.6); Absolute Neutrophils 3.9 10^3/uL (1.4-6.5); Hematocrit 39.5 % (39.0-52.0); Hemoglobin 13.1 g/dL (13.0-18.0); Mean Corp Hgb Conc. 33.2 g/dL (33.0-37.0); Mean Corpuscular Hgb 30.8 pg (27.0-31.0); Mean Corpuscular Volume 92.9 fL (80.0-94.0); Mean Platelet Volume 9.2 fL (7.4-10.4); Nucleated Red Blood Cells % 0 % (-); Platelet Count 157 10^3/uL (130-400); Red Blood Cell Count 4.25 10^6/uL (4.70-6.10); Red Cell Dist. Width 14.3 % (11.5-14.5); White Blood Cell Count 5.2 10^3/uL (4.8-10.8)
[2023-09-16 15:26] LABS: ALT (SGPT) 17 U/L (0-50); AST (SGOT) 32 U/L (17-59); Albumin 4.4 g/dl (3.5-5.0); Alkaline Phosphatase 96 U/L (38-126); Blood Urea Nitrogen 23 mg/dl (9-20); Calcium 9.9 mg/dl (8.4-10.2); Carbon Dioxide 30 mmol/L (22-30); Chloride 98 mmol/L (98-107); Glucose 173 mg/dl (70-99); Magnesium 1.9 mg/dl (1.6-2.3); Potassium 4.2 mmol/L (3.5-5.1); Sodium 138 mmol/L (135-145); Total Bilirubin 0.8 mg/dl (0.2-1.3); Total Protein 6.7 g/dl (6.3-8.2); eGFR > 60.00
== END ==
LOC: REG 14:05
PROVIDERS: ATTENDING PHYSICIAN Internal Medicine Hematology & Oncology; FAMILY PHYSICIAN Internal Medicine
DX: C71.4 Malignant neoplasm of occipital lobe (principal)
CPT/HCPCS: 36415; 80053; 83735; 85025

== ENCOUNTER → 2023-10-01 10:40 | Outpatient (REF) | payer MEDICARE, OTHER, SELFPAY ==
[2023-10-01 11:41] LABS: % Basophils 0.7 % (0-2); % Immature Granulocytes 0.2 % (0-0.5); % Neutrophils 74.1 % (42.2-75.2); Absolute Eosinophils 0.3 10^3/uL (0-0.7); Absolute Lymphocytes 0.4 10^3/uL (1.2-3.4); Absolute Monocytes 0.4 10^3/uL (0.1-0.6); Absolute Neutrophils 3.2 10^3/uL (1.4-6.5); Hematocrit 39.9 % (39.0-52.0); Hemoglobin 13.4 g/dL (13.0-18.0); Mean Corp Hgb Conc. 33.6 g/dL (33.0-37.0); Mean Corpuscular Hgb 31.4 pg (27.0-31.0); Mean Corpuscular Volume 93.4 fL (80.0-94.0); Mean Platelet Volume 9.9 fL (7.4-10.4); Nucleated Red Blood Cells % 0 % (-); Platelet Count 147 10^3/uL (130-400); Red Blood Cell Count 4.27 10^6/uL (4.70-6.10); Red Cell Dist. Width 14.6 % (11.5-14.5); White Blood Cell Count 4.3 10^3/uL (4.8-10.8)
[2023-10-01 13:28] LABS: ALT (SGPT) < 10 U/L (0-50); AST (SGOT) 16 U/L (17-59); Albumin 4.2 g/dl (3.5-5.0); Alkaline Phosphatase 90 U/L (38-126); Blood Urea Nitrogen 24 mg/dl (9-20); Calcium 9.7 mg/dl (8.4-10.2); Carbon Dioxide 29 mmol/L (22-30); Chloride 99 mmol/L (98-107); Glucose 253 mg/dl (70-99); Magnesium 1.8 mg/dl (1.6-2.3); Potassium 4.1 mmol/L (3.5-5.1); Sodium 137 mmol/L (135-145); Total Bilirubin 0.9 mg/dl (0.2-1.3); Total Protein 6.4 g/dl (6.3-8.2); eGFR > 60.00
== END ==
LOC: REG 10:40
PROVIDERS: ATTENDING PHYSICIAN Internal Medicine Hematology & Oncology; FAMILY PHYSICIAN Internal Medicine; REFERRING PHYSICIAN Radiology Radiation Oncology
DX: C71.4 Malignant neoplasm of occipital lobe (principal)
CPT/HCPCS: 36415; 80053; 83735; 85025

== ENCOUNTER → 2023-10-07 08:52 | Outpatient (REF) | payer MEDICARE, OTHER, SELFPAY | LOC: MRI 3T 08:52 | PROVIDERS: ATTENDING PHYSICIAN Family Medicine Geriatric Medicine; FAMILY PHYSICIAN Internal Medicine | DX: C71.4 Malignant neoplasm of occipital lobe (principal) | CPT/HCPCS: 70553; 92507; 97110; 97112; 97530; A9575 ==

== ENCOUNTER 2023-10-19 11:28 | Outpatient (RCR) | payer MEDICARE, OTHER, SELFPAY | END 2023-10-19 23:59 | disposition home or self-care (01) | LOC: ROT 11:28 | PROVIDERS: ATTENDING PHYSICIAN Neurological Surgery; FAMILY PHYSICIAN Internal Medicine | DX: C71.9 Malignant neoplasm of brain, unspecified (principal); R47.01 Aphasia; R47.02 Dysphasia; H53.40 Unspecified visual field defects; Z73.6 Limitation of activities due to disability | CPT/HCPCS: 92507; 92523; 97110; 97112; 97163; 97167; 97530; 97535 ==

== ENCOUNTER 2023-10-21 13:41 | Emergency (ER) | payer MEDICARE, OTHER, SELFPAY ==
[2023-10-21 13:43] VITALS: BP 118/55; BMI 31.1
--- NOTE | 2023-10-21 15:21 | ED.GENMED ---
History of Present Illness
General
Chief Complaint: Skin Problem
Source: patient and family
Exam Limitations: none
Time Seen by Provider: 10/21/23 15:04
History of Present Illness
History of Present Illness:
Patient with a itchy rash x 3 days. Comes and goes. Much worse this morning. Given Benadryl this morning. Minimal to no rash now. No fever chills no other symptoms. No new medications. History of brain cancer. Has been on radiation. Has not
started oral chemotherapy. Patient did not see infectious disease today. They were recommended to follow-up with this disease but were referred by the oncology office to be evaluated in the ER.
Past History
Past History
ED Past Medical History: Other (Back pain, loud snoring, diverticulitis, cataracts), Other (Parkinson's) and Other (Brain tumor)
ED Past Surgical History: Orthopedic (Right total knee replacement, right shoulder replacement) and Other (3 hernia repairs)
Social History
Tobacco: Non-smoker
Alcohol: None
Drug: None
Personal:
Living: with family
Review of Systems
Review of Systems
All Other Systems: Not applicable
Constitutional: Denies fever or chills
Respiratory: Reports no symptoms
Cardiac: Denies chest pain
ABD/GI: Reports no symptoms
Phy Exam
Physical Exam
Physical Exam:
GENERAL: Alert and oriented in no apparent distress no petechia no purpura no hives at this time. Nonspecific contact dermatitis rash in the groins bilaterally
NECK: Supple
CARDIAC: Regular rate and rhythm without any obvious murmurs.
LUNGS: Clear breath sounds,normal
ABDOMEN: Soft, without focal tenderness or distention
NEUROLOGICAL: Alert and oriented , grossly non-focal. masked facies
SKIN: Warm and dry, no rash or lesion, no discoloration, skin intact.
MUSCULOSKELETAL: No edema,no deformity.Good color
PSYCH: Normal and appropriate interaction..
Course
Vital Signs
Initial and Last Documented VS:
Initial Vital Signs
Temp Pulse Resp BP Pulse Ox
98.2 F 76 16 118/55 99
10/21/23 13:43 10/21/23 13:43 10/21/23 13:43 10/21/23 13:43 10/21/23 13:43
Last Documented Vital Signs
Temp Pulse Resp BP Pulse Ox
98.2 F 76 16 118/55 99
10/21/23 13:43 10/21/23 13:43 10/21/23 13:43 10/21/23 13:43 10/21/23 13:43
MDM/Problems Addressed
Differential Diagnosis Includes:
Patient's family had a picture of the rash. Clearly these were hives this morning. Relatively significant across his abdomen and lower extremities and somewhat in his chest 2. However they are totally gone at this time. Clearly not infectious.
No other systemic infectious symptoms. Family does not want to start steroids he does not react to them well. Will continue H1 karen. Add H2 karen. They continue topical cortisone and follow-up. No indication for lab testing at this time
*Critical Care Note
Total Time (30-74mins, 75-104mins- exclusive of procedures): Not Applicable
ED Attending Note
-
Portions of this chart may have been created with voice recognition software.� Occasional wrong word or��sound alike� substitutions may have occurred due to the inherent limitations of voice recognition software.
Discharge Plan
Departure
Patient Disposition: Home (Routine Discharge)
Date of Disposition: 10/21/23
Time of Disposition: 15:24
Patient with high blood pressure during this ER visit?: No
Discharge Problem:
Hives, Groin contact dermatitis
Prescriptions:
No Action
atorvastatin 10 MG tablet
10 mg PO QPM
finasteride 5 MG tablet
5 mg PO HS
metformin 1,000 MG tablet
1,000 mg PO BID
verapamil 120 MG tablet extended release
120 mg PO DAILY
metoprolol succinate 25 MG tablet extended release 24 hr
25 mg PO QPM
No Flush Niacin
500 mg PO DAILY
carbidopa-levodopa 25-100 mg tablet
1 tab PO BID
Referrals:
Esa Duncan, DO [Family Provider] -
Activity Restrictions/Additional Instructions:
As we discussed, Benadryl Claritin or Dominga
Pepcid daily for the next week
Continue cortisone cream
Continue the powder in the groin
Recheck with persistent symptoms or progressive symptoms shortness of breath fever chills or any other concerning symptoms
Follow-up closely with your primary physician and oncologist
Interventions
Interventions:
*Risk Screen - Suicide Last Done: 10/21/23 13:43
*General Assessment Last Done: 10/21/23 14:18
*Neglect/Abuse Screening Last Done: 10/21/23 13:43
*ED COVID-19 Vaccine History Last Done: 10/21/23 14:18
ED-Skin Assessment Last Done: 10/21/23 14:19
Discharge Date and Time
Print Language: ESTONIAN
[2023-10-21] MEDS: PEPCID 20 MG PO (15:57)
[2023-10-21] MEDS: BENADRYL 25 MG PO (15:57)
== END 2023-10-21 16:09 | disposition home or self-care (01) ==
LOC: EMR 13:41
PROVIDERS: EMERGENCY PHYSICIAN Emergency Medicine; FAMILY PHYSICIAN Internal Medicine
DX: L50.9 Urticaria, unspecified (principal); L25.9 Unspecified contact dermatitis, unspecified cause; G20.A1 Parkinson's disease without dyskinesia, without mention of fluctuations; Z96.611 Presence of right artificial shoulder joint
CPT/HCPCS: 99282

== ENCOUNTER → 2023-10-28 14:04 | Outpatient (REF) | payer MEDICARE, OTHER, SELFPAY | LOC: RAD 14:04 | PROVIDERS: ATTENDING PHYSICIAN Radiology Radiation Oncology | DX: R60.0 Localized edema (principal) | CPT/HCPCS: 93970 ==

== ENCOUNTER 2023-10-29 21:40 | Emergency (ER) | payer MEDICARE, OTHER, SELFPAY ==
[2023-10-29 21:44] VITALS: BP 153/53
[2023-10-29 21:46] VITALS: BMI 29.6
[2023-10-29 21:47] VITALS: BP 153/53
[2023-10-29] MEDS: NSS 500 IV (22:06)
[2023-10-29 22:15] LABS: % Basophils 0.2 % (0-2); % Eosinophils 0.8 % (0-6); % Immature Granulocytes 0.2 % (0-0.5); % Lymphocytes 5.4 % (20.5-51.1); % Monocytes 4.9 % (1.7-9.3); % Neutrophils 88.5 % (42.2-75.2); Absolute Lymphocytes 0.3 10^3/uL (1.2-3.4); Absolute Monocytes 0.3 10^3/uL (0.1-0.6); Absolute Neutrophils 4.7 10^3/uL (1.4-6.5); Hematocrit 35.6 % (39.0-52.0); Hemoglobin 12.5 g/dL (13.0-18.0); Mean Corp Hgb Conc. 35.1 g/dL (33.0-37.0); Mean Corpuscular Hgb 31.8 pg (27.0-31.0); Mean Corpuscular Volume 90.6 fL (80.0-94.0); Mean Platelet Volume 9.5 fL (7.4-10.4); Nucleated Red Blood Cells % 0 % (-); Platelet Count 153 10^3/uL (130-400); Red Blood Cell Count 3.93 10^6/uL (4.70-6.10); Red Cell Dist. Width 13.2 % (11.5-14.5); White Blood Cell Count 5.3 10^3/uL (4.8-10.8)
--- NOTE | 2023-10-29 22:19 | ED.GENMED ---
History of Present Illness
General
Chief Complaint: Weakness
Source: patient
Exam Limitations: none
Time Seen by Provider: 10/29/23 21:51
History of Present Illness
History of Present Illness:
This is a 78 year old male that is brought in by ambulance with c/o facial droop. Patient states that his thought he had a facial droop. Told that the patient has PT today and speech therapy. Patient has no complaints. Denies any fever, chills,
chest pain, SOB, abd pain, nausea, vomiting, diarrhea, headache, dizziness, urinary burning.
Past History
Past History
ED Past Medical History: CVA, NIDDM, Other (Back pain, loud snoring, diverticulitis, cataracts Parkinson's), Other (Parkinson's) and Other (Brain tumor)
ED Past Surgical History: Orthopedic (Right total knee replacement, right shoulder replacement, left wrist ganglion removed, back surgery L2-L3) and Other (3 hernia repairs, cataracts)
Social History
Tobacco: Former smoker
Alcohol: Occasional
Drug: None
Personal:
Living: with family
Review of Systems
Review of Systems
All Other Systems: ROS reviewed and negative except as documented in HPI and ROS
Constitutional: Reports no symptoms; Denies fever or chills
EENT: Reports no symptoms
Respiratory: Reports no symptoms; Denies cough or trouble breathing
Cardiac: Reports no symptoms; Denies chest pain
ABD/GI: Reports no symptoms; Denies abdominal pain, nausea, vomiting or diarrhea
: Reports no symptoms; Denies dysuria, frequency or urgency
Musculoskeletal: Reports no symptoms
Skin: Reports no symptoms
Neurological: Reports no symptoms; Denies dizzy or headache
Psychiatric: Reports no symptoms
Phy Exam
General Physical Exam
General Presentation: no apparent distress
General age: appears stated age
General Skin: warm
General Habitus: elderly
General Mental: alert
General Hydration: appears well hydrated
ENT Exam
ENT Exam: TM's normal, pharynx normal and neck supple
Eye Exam
Eye Exam: PERRL and EOMI
Cardiovascular Exam
Cardiovascular Exam: regular rate/rhythm and normal peripheral pulses
Pulmonary Exam
Pulmonary Exam: lungs clear, no respiratory distress, no rales, chest non tender, no crackles, no rhonchi, no wheezing and no cough
Gastrointestinal Exam
Gastrointestinal Exam: normal bowel sounds, non tender, soft, no organomegaly, no pulsatile mass and non distended
NIH Stroke Score
Level of Consciousness: 0 - Alert
LOC questions: 0-Answers both correctly
LOC Commands: 0-Performs both correctly
Best Gaze: 0-Normal
Facial palsy: 0=Normal, symmetrical
Motor - Right Arm: 0=No drift 10 seconds
Motor - Left Arm: 0=No drift 10 seconds
Motor - Right Le-No drift 5 seconds (Unable to hold legs up)
Motor - Left Le-No drift 5 seconds (Unable to hold legs up)
Limb Ataxia: 0-Absent
Sensation: 0-Normal
Best Language: 0-No aphasia
Dysarthria: 0-Normal
Extinction and Inattention: 0-No abnormality
Musculoskeletal Exam
Musculoskeletal Exam: full ROM and edema (feet and lower legs +1)
Skin Exam
Skin Exam: normal color, warm/dry, no rash and no petechia
Psychiatric Exam
Psychiatric Exam: normal mood/affect
Course
Orders/Labs/Results
Orders:
Orders
10/29/23 21:46
EKG [Electrocardiogram (*1)] Urgent
Reason for Study: TIA/Stroke
EKG- Treatment ONCE
10/29/23 22:04
CT Head W/o Iv Contrast Urgent
Comment:
Reason For Exam: concern for stroke,
0.9% Sodium Chloride 500 ml [Nss] 500 ml IV BOLUS
10/29/23 22:07
Complete Blood Count/With Diff Urgent
Comprehensive Metabolic Panel Urgent
Troponin I Urgent
Abnormal Lab Results
10/29/23
22:07
RBC 3.93 L 10^6/uL
(4.70-6.10)
Hgb 12.5 L g/dL
(13.0-18.0)
Hct 35.6 L %
(39.0-52.0)
MCH 31.8 H pg
(27.0-31.0)
Absolute Lymphs (auto) 0.3 L 10^3/uL
(1.2-3.4)
Neutrophils % 88.5 H %
(42.2-75.2)
Lymphocytes % 5.4 L %
(20.5-51.1)
Sodium 132 L mmol/L
(135-145)
BUN 30 H mg/dl
(9-20)
Glucose 197 H mg/dl
(70-99)
Total Protein 5.9 L g/dl
(6.3-8.2)
10/29/23 22:07
10/29/23 22:07
H/H slightly low. Sodium slightly low. Dehydration. glucose nonfasting. Total protein slightly low.
Vital Signs
Initial and Last Documented VS:
Initial Vital Signs
BP
153/53
10/29/23 21:44
Last Documented Vital Signs
Temp Pulse Resp BP Pulse Ox
98.4 F 67 18 112/86 97
10/29/23 21:47 10/29/23 23:15 10/29/23 23:15 10/29/23 23:00 10/29/23 23:15
MDM/Problems Addressed
Differential Diagnosis Includes:
weakness, Parkinson's
MDM/Problems Addressed:
This is a 78 year old male that comes in by ambulance with c/o facial droop. Patient states that his felt he had a facial droop. told nursing that the patient has PT today and speech.
will check labs. Get CT head, IV fluids.
Back into see patient and . Explained that his CT is negative for any acute process. Explained that patient is dehydrated. Encouraged patient to increase his water intake to 8-8oz glasses daily. Explained that with the Parkinson's and patient
having PT and speech today he may just have been tired. Will discharge home.
Chronic conditions affecting care:
Parkinson's, Brain neoplasm
Chronic conditions affecting care: Cancer
Acute Exacerbation and/or Progression of Chronic Illness:
brain Neoplasm, Parkinsons
Acute Exacerbation and/or Progression of Chronic Illness: Cancer
*Radiology
Radiology exam reviewed: radiology read reviewed (CT head-No acute intracrnial abnormalilty is appreciated. Postsurgical/posttreatment changes are demonstrated centered about the left paramidline occipital and parietal lobes. as described. No mass
effect. No midline shift. )
*Pulse Oximetry
Patient hypoxic: no
*EKG
Interpreted by ED Provider?: Yes
Heart Rate: 72
Rate: normal
Rhythm: sinus
[place]: normal axis
Interval: normal interval
QRS Pattern: low voltage
Ischemia: no ischemia
*Flag Decorator Interpretation
Rate: normal
Heart Rate: 74
Rhythm: sinus
*Critical Care Note
Total Time (30-74mins, 75-104mins- exclusive of procedures): Not Applicable
ED Attending Note
-
Portions of this chart may have been created with voice recognition software.� Occasional wrong word or��sound alike� substitutions may have occurred due to the inherent limitations of voice recognition software.
Discharge Plan
Departure
Disposition: Home (Routine Discharge)
Date of Disposition: 10/29/23
Time of Disposition: 23:34
Patient with high blood pressure during this ER visit?: No
Condition: Good
Covid-19: Not Applicable
Discharge Problem:
Generalized weakness
Instructions: Generalized Weakness (DC)
Prescriptions:
No Action
finasteride 5 MG tablet
5 mg PO HS
metformin 1,000 MG tablet
1,000 mg PO BIDWMEAL
metoprolol succinate 25 MG tablet extended release 24 hr
12.5 mg PO HS
carbidopa-levodopa 25-100 mg tablet
1 tab PO TID
atorvastatin 20 mg tablet
20 mg PO HS
levetiracetam 500 mg tablet
500 mg PO BID
dofetilide 250 mcg capsule
250 mcg PO BID
atovaquone 750 mg/5 mL suspension
1,500 mg PO DAILY
Eliquis 5 mg tablet
5 mg PO BID
Additional Instructions:
As discussed, your blood work shows dehydration. Please increase your water intake to 8-8oz glasses daily. Your CT if negative for any acute process. This may just be generalized weakness due to patient Parkinson's. Please follow up with the family
doctor. IF YOU HAVE ANY OTHER CONCERNS PLEASE RETURN TO THE EMERGENCY ROOM
Interventions
Interventions:
*Risk Screen - Suicide Last Done: 10/29/23 21:56
*General Assessment Last Done: 10/29/23 21:56
*Neglect/Abuse Screening Last Done: 10/29/23 21:56
*ED COVID-19 Vaccine History Last Done: 10/29/23 21:56
ED- Cardiac Assessment Last Done: 10/29/23 21:56
ED- Neurological Assessment Last Done: 10/29/23 21:56
ED- Pulmonary Assessment Last Done: 10/29/23 21:56
Discharge Date and Time
Print Language: COMORAN
[2023-10-29 22:36] LABS: Sodium 132 mmol/L (135-145)
[2023-10-29 22:38] LABS: AST (SGOT) 18 U/L (17-59); Blood Urea Nitrogen 30 mg/dl (9-20); Calcium 9.5 mg/dl (8.4-10.2); Carbon Dioxide 28 mmol/L (22-30); Estimated Creatinine Clearance 56 ml/min; Glucose 197 mg/dl (70-99); Potassium 4.2 mmol/L (3.5-5.1); Total Bilirubin 0.5 mg/dl (0.2-1.3); Total Protein 5.9 g/dl (6.3-8.2); eGFR > 60.00
[2023-10-29 22:39] LABS: ALT (SGPT) 12 U/L (0-50); Alkaline Phosphatase 83 U/L (38-126); Chloride 98 mmol/L (98-107)
[2023-10-29 22:50] LABS: Troponin I < 0.012 ng/ml
[2023-10-29 23:00] VITALS: BP 112/86
== END 2023-10-30 00:41 | disposition home or self-care (01) ==
LOC: EMR 21:40
PROVIDERS: Clinical Nurse Specialist Family Health; EMERGENCY PHYSICIAN Emergency Medicine; FAMILY PHYSICIAN Internal Medicine
DX: R53.1 Weakness (principal); R29.810 Facial weakness; E11.36 Type 2 diabetes mellitus with diabetic cataract; G20.A1 Parkinson's disease without dyskinesia, without mention of fluctuations; E86.0 Dehydration; Z86.73 Personal history of transient ischemic attack (TIA), and cerebral infarction without residual deficits; Z87.891 Personal history of nicotine dependence; Z96.611 Presence of right artificial shoulder joint
CPT/HCPCS: 99284; 96360; 70450; 80053; 84484; 85025; 93005

== ENCOUNTER 2023-11-04 13:33 | Outpatient (RCR) | payer MEDICARE, OTHER, SELFPAY | END 2023-11-04 23:59 | disposition home or self-care (01) | LOC: ROT 13:33 | PROVIDERS: ATTENDING PHYSICIAN Neurological Surgery; FAMILY PHYSICIAN Internal Medicine | DX: C71.9 Malignant neoplasm of brain, unspecified (principal); Z73.6 Limitation of activities due to disability; H53.40 Unspecified visual field defects; R47.01 Aphasia; G20.A1 Parkinson's disease without dyskinesia, without mention of fluctuations | CPT/HCPCS: 92507; 97110; 97112; 97116; 97530; 97535 ==